=== PATIENT | male | born 1970 | race Two or more races ===

== ENCOUNTER 2022-07-16 15:22 | Inpatient (IN) | payer MEDICAID ==
[~2022-07-16] VITALS: Ht 165.1 cm; Wt 70.3 kg
--- NOTE | 2022-07-16 15:25 | NUR ---
[facility] W/ C/O CHEST DISCOMFORT, MID ABD PAIN GOING TO THROAT, ALSO C/O HEADACHE, GOT 3HRS 15MIN DIALYSIS BEFORE STOPPED, [id number]. TO ER BED 10.
--- NOTE | 2022-07-16 15:50 | NUR ---
TECH AT BEDSIDE FOR EKG
[2022-07-16] MEDS ORDERED: ONDANSETRON HCL/PF 4 MG/2 ML VIAL IV ONE (16:00)
[2022-07-16] MEDS ORDERED: MORPHINE SULFATE INJ 2 MG/ML DISP.SYRIN IV ONE (16:00)
[2022-07-16] MEDS ORDERED: FAMOTIDINE/PF INJ 20 MG/2 ML VIAL IV ONE ×2 (16:00→16:04)
[2022-07-16] MEDS ORDERED: MORPHINE SULFATE INJ 4 MG/ML DISP.SYRIN ONE (16:03)
[2022-07-16] MEDS ORDERED: ONDANSETRON HCL/PF 4 MG/2 ML VIAL ONE (16:03)
[2022-07-16 16:04] LABS: BASOPHILS % (AUTO) 0.4 % (0.0-2.0); EOSINOPHILS % (AUTO) 3.9 % (0.0-6.0); HEMATOCRIT 22 % (39-51); HEMOGLOBIN 7.2 g/dL (13.5-17.5); LYMPHOCYTES # (AUTO) 0.9 K/uL (0.8-4.8); LYMPHOCYTES % (AUTO) 12.8 % (20.0-44.0); MEAN CORPUSCULAR HGB CONC 34 g/dl (31.0-36.0); MEAN CORPUSCULAR VOLUME 87 fL (80-96); MONOCYTES # (AUTO) 0.9 K/uL (0.1-1.30); MONOCYTES % (AUTO) 12.6 % (2.0-12.0); NEUTROPHILS # (AUTO) 4.8 K/uL (1.8-8.9); NEUTROPHILS % (AUTO) 70.3 % (43.0-81.0); PLATELET COUNT (AUTO) 73 K/uL (150-450); RED BLOOD CELL COUNT(AUTO) 2.47 MIL/uL (4.5-6.0); WHITE BLOOD COUNT (AUTO) 6.9 K/uL (4.3-11.0)
[2022-07-16 16:14] LABS: CALCIUM, SERUM 8.2 mg/dL (8.5-10.1); CARBON DIOXIDE 33 mmol/L (21-32); CHLORIDE 98 mmol/L (98-107); GLUCOSE 333 mg/dL (74-106); SODIUM SERUM 133 mmol/L (136-145); UREA NITROGEN, BLOOD 24 mg/dL (7-18)
[2022-07-16 16:20] LABS: ALANINE AMINOTRANSFERASE 76 U/L (12-78); ALBUMIN 2.7 g/dL (3.4-5.0); ALKALINE PHOSPHATASE 229 U/L (46-116); BILIRUBIN,DIRECT 0.1 mg/dL (0.0-0.2); BILIRUBIN,TOTAL 0.3 mg/dL (0.2-1.0); LIPASE 250 U/L (73-393)
--- NOTE | 2022-07-16 16:33 | NUR ---
TROPONIN-123, DR REYNOLDS MADE AWARE
[2022-07-16 16:40] LABS: ASPARTATE AMINOTRANSFERASE 35 U/L (15-37)
--- NOTE | 2022-07-16 16:40 | NUR ---
MOVE SHEET SUBMITTED.
--- NOTE | 2022-07-16 16:46 | NUR ---
COVID SWAB COLLECTED AND SENT TO LAB
--- NOTE | 2022-07-16 16:48 | NUR ---
[facility] CALLED PATTERNMAKER HELPER PAGED.
[2022-07-16] MEDS ORDERED: NIFE20CA PO (16:58)
[2022-07-16] MEDS ORDERED: ATOR80TA PO (16:58)
[2022-07-16] MEDS ORDERED: TAMS-12 PO (16:58)
[2022-07-16] MEDS ORDERED: ASPI-1169 PO (16:58)
[2022-07-16] MEDS ORDERED: GABA-532 PO (16:58)
[2022-07-16] MEDS ORDERED: ONDANSETRON HCL/PF 4 MG/2 ML VIAL IVP PRN (17:30)
[2022-07-16] MEDS ORDERED: ENOXAPARIN SODIUM 40 MG/0.4 ML DISP.SYRIN SQ SCH (17:30)
[2022-07-16] MEDS ORDERED: DEXTROSE 50%-WATER 50 ML DISP.SYRIN IV PRN (17:30)
[2022-07-16] MEDS ORDERED: Z GUARD REMEDY 4 OZ OINT TP PRN (17:30)
--- NOTE | 2022-07-16 17:32 | NUR ---
RT AT BEDSIDE FOR BLOOD DRAW FOR VBG
[2022-07-16 17:40] LABS: VBG COHb 0.3 %; VBG MetHb 0.3 %; VBG O2Hb 68.1 %; VENT MODE, VBG NASAL CANNULA
--- NOTE | 2022-07-16 18:37 | NUR ---
ROOM [id number]
--- NOTE | 2022-07-16 18:44 | NUR ---
PT REPORT GIVEN TO PRICE MAGAÑA
--- NOTE | 2022-07-16 19:45 | NUR ---
MECHANICAL APPRENTICECAD DRAFTER NOTES RECEIVED PATIENT FROM ER WITH IRINA AT 1945. PATIENT IS ALERT AND ORIENTED TIMES 4. LIBERIAN AND LIBERIAN SPEAKER. NO PAIN NOTED. NO SOB NOTED. NO DISTRESS NOTED. ON 02 INHALATION VIA NASAL CANNULA . O2 SAT NOTES 96%. IV ACCESS ON THE LAC g # 20 INTACT AND SL. RIGHT CHEST WALL PERMA CATH INTACT. NO BLEEDING NOTED. NOTED WOUND ON LEFT 2ND AND 3RD TOE AND SKIN DRYNESS ON THE LEFT KNEE. ON TELE MONITOR READING SR. ABLE TO MAKE NEEDS KNOWN. ABLE TO AMBULATE WITH WALKER. ANURIC. TROPONIN IS 125. ORDER OF LOVENOX CHANGED TO HEPARING PER PROPERTY CLAIM REP GUSTAVO. ALL SAFETY MEASURES IN PLACE. BED LOCKED IN THE LOWEST POSITION. CALL LIGHT AND TABLE IN EASY REACH. SIDE RAILS UP TIMES 2. EDUCATE THE PATIENT TO PRESS RED BUTTON FOR ANY ASSISTANCE. PATIENT VERBALIZED UNDERSTANDING. WILL CONTINUE TO MONITOR CLOSELY.
--- NOTE | 2022-07-16 19:52 | NUR ---
PATIENT TRANSFFERED TO 3W PER ACLS
[2022-07-16] MEDS: GABAPENTIN 100 MG CAPSULE PO SCH (20:53)
[2022-07-16] MEDS: BLOOD SUGAR DIAGNOSTIC 1 EACH STRIP IN SCH ×2 (20:53→21:22)
[2022-07-16] MEDS: ATORVASTATIN 10 MG TABLET PO SCH (21:13)
[2022-07-16] MEDS: HEPARIN SODIUM, PORCINE 5000 UNITS/1 ML VIAL SQ SCH (21:14)
[2022-07-16] MEDS: INSULIN REGULAR, HUMAN 100 UNIT/ML 3 ML VIAL SQ PRN (21:24)
[2022-07-16 22:05] VITALS: BP 149/76
[2022-07-17] VITALS: BP 145/65
--- NOTE | 2022-07-17 00:05 | NUR ---
RN NOTES DORIE FROM LAB CALLED AND REPORTED TROPONIN LEVEL 131. REPORTED TO BULB WEEDER ARINA CHEN. NO NEW ORDER WAS GIVEN.
--- NOTE | 2022-07-17 00:05 | NUR ---
RN DANA OSHEA FROM LAB CALLED AND GAVE REPORT OF TROPONIN 131. REPORTED THE RESULT TO JOSE CHEN , NO NEW ORDER WAS GIVEN.
[2022-07-17] MEDS: ACETAMINOPHEN 325 MG TABLET PO PRN ×4 (00:17→21:27)
--- NOTE | 2022-07-17 00:20 | NUR ---
RN NOTES PATIENT COMPLAINED OF HEADACHE. TYLENOL 650 MG GIVEN AT 0017. WILL ASSESS IN 1 HOUR.
[2022-07-17 04:00] VITALS: BP 161/86
[2022-07-17] MEDS: BLOOD SUGAR DIAGNOSTIC 1 EACH STRIP IN SCH ×4 (05:50→21:33)
[2022-07-17] MEDS: INSULIN REGULAR, HUMAN 100 UNIT/ML 3 ML VIAL SQ PRN ×4 (05:52→21:32)
[2022-07-17 05:56] LABS: BASOPHILS % (AUTO) 0.6 % (0.0-2.0); EOSINOPHILS % (AUTO) 6.2 % (0.0-6.0); HEMATOCRIT 21 % (39-51); HEMOGLOBIN 7.2 g/dL (13.5-17.5); LYMPHOCYTES # (AUTO) 0.9 K/uL (0.8-4.8); LYMPHOCYTES % (AUTO) 15.4 % (20.0-44.0); MEAN CORPUSCULAR HGB CONC 34 g/dl (31.0-36.0); MEAN CORPUSCULAR VOLUME 88 fL (80-96); MONOCYTES # (AUTO) 0.8 K/uL (0.1-1.30); MONOCYTES % (AUTO) 13.3 % (2.0-12.0); NEUTROPHILS % (AUTO) 64.5 % (43.0-81.0); PLATELET COUNT (AUTO) 71 K/uL (150-450); RED BLOOD CELL COUNT(AUTO) 2.44 MIL/uL (4.5-6.0); WHITE BLOOD COUNT (AUTO) 6.2 K/uL (4.3-11.0)
[2022-07-17 06:06] LABS: CALCIUM, SERUM 8.5 mg/dL (8.5-10.1); MAGNESIUM 2.2 mg/dL (1.8-2.4); PHOSPHORUS 5.3 mg/dL (2.5-4.9); POTASSIUM 4.3 mmol/L (3.5-5.1)
--- NOTE | 2022-07-17 06:39 | NUR ---
CASCADE OPERATOR CLOSING NOTES PATIENT IS ALERT AND ORIENTED TIMES 4. SWEDISH AND [place] SPEAKER. HEADACHE NOTED. PRN TYLENOL GIVEN FOR PAIN. NO SOB NOTED. NO DISTRESS NOTED. ON 02 INHALATION VIA NASAL CANNULA . O2 SAT NOTES 97%. IV ACCESS ON THE LAC g # 20 INTACT AND SL. RIGHT CHEST WALL PERMA CATH INTACT. NO BLEEDING NOTED. NOTED WOUND ON LEFT 2ND AND 3RD TOE AND SKIN DRYNESS ON THE LEFT KNEE. ON TELE MONITOR READING SR WITH BBB. ABLE TO MAKE NEEDS KNOWN. ABLE TO AMBULATE WITH WALKER. ANURIC. ALL DUE MEDS GIVEN ORDERED. ALL SAFETY MEASURES IN PLACE. BED LOCKED IN THE LOWEST POSITION. CALL LIGHT AND TABLE IN EASY REACH. SIDE RAILS UP TIMES 2. EDUCATE THE PATIENT TO PRESS RED BUTTON FOR ANY ASSISTANCE. PATIENT VERBALIZED UNDERSTANDING. WILL ENDORSE FOR JAVIER.
[2022-07-17 07:00] VITALS: BP 171/87
--- NOTE | 2022-07-17 07:26 | NUR ---
MARINE FUEL DOCK ATTENDANT OPENING NOTES RECIEVED PATIENT ON BED AWAKE AND VERBALLY RESPONSIVE , A/0 X4 , ON 2 L OF OXYGEN AND TOLERATED WELL , NO SOB OR DISTRESS NOTED , NO C/O OF PAIN AND DISCOMFORT , IV ACCESS ON LAC #20 G SL , ON HEMODIALYSIS WITH RUC PERMA CATH ACCESS INTACT , ON TELE MONITOR WITH READING OF OF SR C BBB , SAFETY MEASURES PROVIDED , SIDE RAILS UP X2 , CALL LIGHT WITHIN REACH AND WILL CONTINUE TO MONITOR FOR ANY CHANGES
[2022-07-17] MEDS: ASPIRIN 81 MG TAB.CHEW PO SCH (08:11)
[2022-07-17] MEDS: TAMSULOSIN 0.4 MG CAP.SR.24H PO SCH (08:12)
[2022-07-17] MEDS: GABAPENTIN 100 MG CAPSULE PO SCH ×3 (08:12→16:12)
[2022-07-17] MEDS: HEPARIN SODIUM, PORCINE 5000 UNITS/1 ML VIAL SQ SCH ×2 (08:13→20:20)
[2022-07-17 08:50] LABS: BAND % (MANUAL) 1 % (0.0-5.0); EOSINOPHILS % (MANUAL) 5 % (0-4); LYMPHOCYTES % (MANUAL) 16 % (16-48); MONOCYTES % (MANUAL) 10 % (0-11.0); NEUTROPHILS % (MANUAL) 68 (42-76)
[2022-07-17] MEDS ORDERED: HEPARIN INFUSION/D5W 500 ML IV PRN (13:30)
--- NOTE | 2022-07-17 15:10 | NUR ---
RN NOTES PATIENT C/O OF HEADACHE AND TYLENOL GIVEN ORDERED
[2022-07-17 16:00] VITALS: BP 200/90
[2022-07-17] MEDS ORDERED: hydrALAZINE HCL 50 MG TABLET PO ONE (16:00)
--- NOTE | 2022-07-17 16:10 | NUR ---
RN NOTES PATIENT BP WAS 200/90 AND DNP SHRUIT AWARE AND WITH ORDER TO GIVE HYDRALAZINE 50 MG PO X 1 , GIVEN ORDERED
--- NOTE | 2022-07-17 17:00 | NUR ---
RN NOTES RECHECKED BP - WITH 158/80 , MD AWARE , NO CHANGES NOTED AT THIS TIME
--- NOTE | 2022-07-17 18:39 | NUR ---
[employer] SALES REPRESENTATIVE CLOSING NOTES RECEIVED PATIENT ON BED AWAKE AND VERBALLY RESPONSIVE , A/0 X4 , SPEAKS BAHAMIAN AND SPANISH , ON 2 L OF OXYGEN AND TOLERATED WELL , NO SOB OR DISTRESS NOTED , C/O OF PAIN AND DISCOMFORT - HEADACHE AND TYLENOL GIVEN ORDERED , IV ACCESS ON LAC #20 G SL , ON HEMODIALYSIS WITH RUC PERMA CATH ACCESS INTACT , ON TELE MONITOR WITH READING OF OF SR C BBB HR OF 68 , SAFETY MEASURES PROVIDED , SIDE RAILS UP X2 , CALL LIGHT WITHIN REACH AND ENDORSED TO NEXT SHIFT
--- NOTE | 2022-07-17 19:30 | NUR ---
REHABILITATION ASSISTANT OPENING NOTES PATIENT IS ALERT AND ORIENTED TIMES 4. IVORIAN AND SLOVENIAN SPEAKER. NO SOB NOTED. NO DISTRESS NOTED. ON 02 INHALATION VIA NASAL CANNULA . O2 SAT NOTES 96%. IV ACCESS ON THE LAC g # 20 INTACT AND SL. RIGHT CHEST WALL PERMA CATH INTACT. NO BLEEDING NOTED. NOTED WOUND ON LEFT 2ND AND 3RD TOE AND SKIN DRYNESS ON THE LEFT KNEE. ON TELE MONITOR READING SR WITH BBB. ABLE TO MAKE NEEDS KNOWN. ABLE TO AMBULATE WITH WALKER. ANURIC. ALL SAFETY MEASURES IN PLACE. BED LOCKED IN THE LOWEST POSITION. CALL LIGHT AND TABLE IN EASY REACH. SIDE RAILS UP TIMES 2. EDUCATE THE PATIENT TO PRESS RED BUTTON FOR ANY ASSISTANCE. PATIENT VERBALIZED UNDERSTANDING. WILL CONTINUE TO MONITOR.
[2022-07-17] MEDS ORDERED: NITROGLYCERIN PACKET 1 GM PACKET ONE (20:17)
[2022-07-17] MEDS: NITROGLYCERIN 30 GM TUBE TP SCH (20:22)
[2022-07-17] MEDS: ATORVASTATIN 10 MG TABLET PO SCH (21:17)
[2022-07-18 00:16] VITALS: BP 154/70
[2022-07-18] MEDS: ACETAMINOPHEN 325 MG TABLET PO PRN ×2 (04:15→17:05)
[2022-07-18] MEDS: hydrALAZINE HCL 50 MG TABLET PO SCH ×3 (04:15→22:32)
[2022-07-18 04:43] VITALS: BP 180/80
[2022-07-18] MEDS: BLOOD SUGAR DIAGNOSTIC 1 EACH STRIP IN SCH ×4 (06:07→22:42)
[2022-07-18] MEDS: INSULIN REGULAR, HUMAN 100 UNIT/ML 3 ML VIAL SQ PRN ×4 (06:13→22:46)
--- NOTE | 2022-07-18 06:31 | NUR ---
SOURCING CONSULTANT CLOSING NOTES PATIENT IS ALERT AND ORIENTED TIMES 4. BRITISH [place]ER AND [place] SPEAKER. NO DISTRESS NOTED. ON 02 INHALATION VIA NASAL CANNULA . O2 SAT NOTES 98%. IV ACCESS ON THE LAC g # 20 INTACT AND SL. RIGHT CHEST WALL PERMA CATH INTACT. NO BLEEDING NOTED. NOTED WOUND ON LEFT 2ND AND 3RD TOE AND SKIN DRYNESS ON THE LEFT KNEE. ON TELE MONITOR READING SR WITH BBB. ABLE TO MAKE NEEDS KNOWN. ABLE TO AMBULATE WITH WALKER. ANURIC. ALL DUE MEDS GIVEN ORDERED. ALL SAFETY MEASURES IN PLACE. BED LOCKED IN THE LOWEST POSITION. CALL LIGHT AND TABLE IN EASY REACH. SIDE RAILS UP TIMES 2. EDUCATE THE PATIENT TO PRESS RED BUTTON FOR ANY ASSISTANCE. PATIENT VERBALIZED UNDERSTANDING. WILL ENDORSE FOR JAVIER.
[2022-07-18 06:34] LABS: BASOPHILS % (AUTO) 0.6 % (0.0-2.0); EOSINOPHILS % (AUTO) 3.9 % (0.0-6.0); HEMATOCRIT 21 % (39-51); LYMPHOCYTES # (AUTO) 0.8 K/uL (0.8-4.8); LYMPHOCYTES % (AUTO) 10.9 % (20.0-44.0); MEAN CORPUSCULAR HGB CONC 33 g/dl (31.0-36.0); MEAN CORPUSCULAR VOLUME 89 fL (80-96); MONOCYTES # (AUTO) 0.7 K/uL (0.1-1.30); MONOCYTES % (AUTO) 9.6 % (2.0-12.0); NEUTROPHILS # (AUTO) 5.8 K/uL (1.8-8.9); PLATELET COUNT (AUTO) 94 K/uL (150-450); RED BLOOD CELL COUNT(AUTO) 2.41 MIL/uL (4.5-6.0); WHITE BLOOD COUNT (AUTO) 7.7 K/uL (4.3-11.0)
[2022-07-18 06:44] LABS: CALCIUM, SERUM 8.6 mg/dL (8.5-10.1); CREATININE 6.5 mg/dL (0.6-1.3); PHOSPHORUS 5.4 mg/dL (2.5-4.9); POTASSIUM 4.9 mmol/L (3.5-5.1)
--- NOTE | 2022-07-18 07:05 | NUR ---
RN NOTES LELA FROM LAB CALLED AT 0700 AM AND REPORTED LAB RESULT OF HEMOGLOBIN 7 AND TROPONIN 138. INFORMED ARINA CHEN. AWAITING FOR NEW ORDERS IF GIVEN.
--- NOTE | 2022-07-18 07:25 | NUR ---
FREIGHT CALLER OPENING NOTES RECEIVED PATIENT IN BED, AWAKE, ALERT, ORIENTED X 4. NO RESPIRATORY DISTRESS NOTED AT THIS TIME, BREATHING EVEN AND UNLABORED. ON OXYGEN @ 2L/MIN VIA N/C WITH OXYGEN SATURATION OF 99%. ON SR WITH BBB PER TELE MONITOR WITH HR OF 82. NO C/O CHEST PAIN OR DISCOMFORT AT THIS TIME. IV ACCESS ON LEFT ANTECUBITAL AREA INTACT, PATENT, FLUSHES WELL, NO S/S INFILTRATION NOTED. ALSO HAS PERMACATH INTACT ON RIGHT CHEST WALL, DRESSING CLEAN AND DRY. ALL SAFETY MEASURES IN PLACE. BED LOCKED AND IN LOWEST POSITION WITH BED ALARM ON. CALL LIGHT WITHIN REACH AND INSTRUCTED TO USE IT NEEDED. WILL CONTINUE TO MONITOR PATIENT THROUGHOUT SHIFT.
[2022-07-18 08:00] VITALS: BP 144/70
--- NOTE | 2022-07-18 08:35 | NUR ---
CONTACTED SHRUTI VEGAS AND INFORMED OF TROPONIN OF 138 WITH HGB OF 7.0 AND HCT OF 21. PATIENT ALSO HAS AN ORDER FOR HEPARIN. GAVE AN ORDER TO CONTINUE DOSE OF HEPARIN ORDERED.
[2022-07-18 08:41] LABS: EOSINOPHILS % (MANUAL) 5 % (0-4); LYMPHOCYTES % (MANUAL) 16 % (16-48); MONOCYTES % (MANUAL) 5 % (0-11.0); NEUTROPHILS % (MANUAL) 74 (42-76)
[2022-07-18] MEDS: ASPIRIN 81 MG TAB.CHEW PO SCH (08:41)
[2022-07-18] MEDS: GABAPENTIN 100 MG CAPSULE PO SCH ×3 (08:41→17:04)
[2022-07-18] MEDS: TAMSULOSIN 0.4 MG CAP.SR.24H PO SCH (08:41)
[2022-07-18] MEDS: NIFEdipine XL (30MG) 30 MG TAB PO SCH (08:41)
[2022-07-18] MEDS: NITROGLYCERIN 30 GM TUBE TP SCH ×2 (08:53→22:32)
[2022-07-18] MEDS: HEPARIN SODIUM, PORCINE 5000 UNITS/1 ML VIAL SQ SCH ×2 (09:52→22:00)
--- NOTE | 2022-07-18 09:58 | NUR ---
WOUND CARE CONSULT: PT PRESENTS WITH DRY WOUNDS/DISCOLORATION TO LEFT 2ND AND 3RD TOES, PRESENT ON ADMISSION. PT EXAMINED BY DR BREWER. DEFER TO DPM FOR WOUND TREATMENT PLAN. DISCUSSED SKIN PROTECTION WITH NURSING STAFF. MD IN AGREEMENT WITH PLAN OF CARE.
[2022-07-18] MEDS ORDERED: MORPHINE SULFATE INJ 2 MG/ML DISP.SYRIN IV ONE (10:00)
--- NOTE | 2022-07-18 10:00 | NUR ---
CLARK BAHENA WITH AN ORDER FOR MORPHINE 2 MG IVP ONCE DUE TO HEADACHE. ORDER NOTED AND CARRIED OUT.
[2022-07-18] MEDS ORDERED: NITROGLYCERIN 30 GM TUBE TP SCH (11:00)
[2022-07-18] MEDS ORDERED: hydrALAZINE HCL 50 MG TABLET PO SCH (11:00)
[2022-07-18 16:00] VITALS: BP 143/71
--- NOTE | 2022-07-18 18:37 | NUR ---
WOODWORKING MACHINIST CLOSING NOTES PATIENT IN BED, AWAKE, ALERT, ORIENTED X 4. NO RESPIRATORY DISTRESS NOTED THROUGHOUT SHIFT. ON SR WITH PER TELE MONITOR WITH HR OF 84. NO C/O CHEST PAIN OR DISCOMFORT THROUGHOUT SHIFT. IV ACCESS ON LEFT ANTECUBITAL AREA INTACT, PATENT, FLUSHES WELL, NO S/S INFILTRATION NOTED. ALSO HAS PERMACATH INTACT ON RIGHT CHEST WALL, DRESSING CLEAN AND DRY. ALL SAFETY MEASURES IMPLEMENTED. BED LOCKED AND IN LOWEST POSITION WITH BED ALARM ON. CALL LIGHT WITHIN REACH AND INSTRUCTED TO USE IT NEEDED. WILL ENDORSE TO ONCOMING NURSE FOR CONTINUITY OF CARE.
--- NOTE | 2022-07-18 19:30 | NUR ---
DRAWBRIDGE TENDER OPENING NOTE RECEIVED PATIENT FROM AM NURSE; PATIENT IS ALERT AND ORIENTED X 4, ON NASAL CANNULA 2LPM, BREATHING EVENLY AND NO RESPIRATORY DISTRESS NOTED; ABLE TO MAKE NEEDS KNOWN; HOOKED TO COURT OF APPEALS JUDGE; WITH PERMACATH ON RIGHT UPPER CHESTWALL; WITH IV ACCESS ON LAC G20 SALINE LOCK; SAFETY PRECAUTIONS IMPLEMENTED, BED IN LOW POSITION, LOCKED, SIDE RAILS UP X 3, CALL LIGHT WITHIN REACH; WILL CONTINUE TO MONITOR THROUGHOUT SHIFT
[2022-07-18 20:00] VITALS: BP 137/68
[2022-07-18] MEDS: ATORVASTATIN 10 MG TABLET PO SCH (22:32)
[2022-07-19] VITALS (10 sets, daily range): BP systolic 102–153; BP diastolic 62–77
[2022-07-19] MEDS: ACETAMINOPHEN 325 MG TABLET PO PRN ×3 (00:48→20:42)
--- NOTE | 2022-07-19 01:00 | NUR ---
CLOCK AND WATCH HANDS DIPPER NOTE PATIENT UNDERWENT HEMODIALYSIS, 2L OUT; PATIENT COMPLAINED OF PAIN 2/10, GAVE TYLENOL PRN ORDERED; PATIENT TOLERATED WELL
[2022-07-19] MEDS: hydrALAZINE HCL 50 MG TABLET PO SCH ×3 (04:58→21:13)
[2022-07-19] MEDS: BLOOD SUGAR DIAGNOSTIC 1 EACH STRIP IN SCH ×4 (06:30→21:45)
[2022-07-19] MEDS: INSULIN REGULAR, HUMAN 100 UNIT/ML 3 ML VIAL SQ PRN ×4 (06:34→21:44)
--- NOTE | 2022-07-19 06:50 | NUR ---
UNDERGROUND BOLTING MACHINE OPERATOR CLOSING NOTE PATIENT IS ALERT AND ORIENTED X 4, ON NASAL CANNULA 2LPM, BREATHING EVENLY AND NO RESPIRATORY DISTRESS NOTED; ABLE TO MAKE NEEDS KNOWN; HOOKED TO MANAGER STERILE PROCESSING, NO CARDIAC DISTRESS NOTED; WITH PERMACATH ON RIGHT UPPER CHESTWALL; WITH IV ACCESS ON LAC G20 SALINE LOCK; ADMINISTERED MEDICATIONS PRESCRIBED; PATIENT'S NEEDS ATTENDED; NO COMPLAINTS OF PAIN AND DISCOMFORT AT THIS TIME; SAFETY PRECAUTIONS IMPLEMENTED, BED IN LOW POSITION, LOCKED, SIDE RAILS UP X 3, CALL LIGHT WITHIN REACH; WILL ENDORSE TO AM NURSE FOR JAVIER.
--- NOTE | 2022-07-19 08:08 | NUR ---
RN OPENING NOTE PATIENT AWAKE IN BED RESTING, A/O X 4. NO S/S OF PAIN NOTED AT THIS TIME. ON 2L OXYGEN VIA NC, NO SHORTNESS OF BREATH, NO DISTRESS NOTED. IV ACCESS LAC #20G, INTACT, PATENT AND FLUSHING WELL. PATIENT ON EXTERNAL ON CAR SUPERVISOR WITH CURRENT READING OF SR AND HR OF 81, NO CARDIAC DISTRESS NOTED. FALL AND SAFETY MEASURES IN PLACE, BED ALARM ON, BED IN LOW AND LOCK POSITION, CALL LIGHT AND TABLE WITHIN EASY REACH, SIDE RAILS UP X2. WILL CONTINUE TO MONITOR.
[2022-07-19] MEDS: HEPARIN SODIUM, PORCINE 5000 UNITS/1 ML VIAL SQ SCH ×2 (09:00→21:00)
[2022-07-19] MEDS: ASPIRIN 81 MG TAB.CHEW PO SCH (09:33)
[2022-07-19] MEDS: GABAPENTIN 100 MG CAPSULE PO SCH ×3 (09:33→17:22)
[2022-07-19] MEDS: NIFEdipine XL (30MG) 30 MG TAB PO SCH (09:33)
[2022-07-19] MEDS: NITROGLYCERIN 30 GM TUBE TP SCH ×2 (09:34→21:14)
[2022-07-19] MEDS: TAMSULOSIN 0.4 MG CAP.SR.24H PO SCH (09:34)
[2022-07-19 09:54] LABS: BASOPHILS % (AUTO) 0.5 % (0.0-2.0); EOSINOPHILS % (AUTO) 4.1 % (0.0-6.0); LYMPHOCYTES # (AUTO) 0.6 K/uL (0.8-4.8); LYMPHOCYTES % (AUTO) 10.8 % (20.0-44.0); MEAN CORPUSCULAR HGB CONC 33 g/dl (31.0-36.0); MEAN CORPUSCULAR VOLUME 88 fL (80-96); MONOCYTES # (AUTO) 0.7 K/uL (0.1-1.30); MONOCYTES % (AUTO) 11.9 % (2.0-12.0); NEUTROPHILS # (AUTO) 4.3 K/uL (1.8-8.9); NEUTROPHILS % (AUTO) 72.7 % (43.0-81.0); PLATELET COUNT (AUTO) 106 K/uL (150-450); RED BLOOD CELL COUNT(AUTO) 2.26 MIL/uL (4.5-6.0)
[2022-07-19 10:03] LABS: HEMATOCRIT 20 % (39-51); HEMOGLOBIN 6.6 g/dL (13.5-17.5)
[2022-07-19 11:11] LABS: EOSINOPHILS % (MANUAL) 5 % (0-4); LYMPHOCYTES % (MANUAL) 15 % (16-48); MONOCYTES % (MANUAL) 8 % (0-11.0); NEUTROPHILS % (MANUAL) 72 (42-76)
--- NOTE | 2022-07-19 14:00 | NUR ---
RN NOTE PATIENT INFORMED US THAT HIS NAME WAS ERIN MARCANO INSTED OF KRYS BHAKTA. ADMITTING OFFICE WAS NOTIFIED AND NAME WAS UPDATE AND NEW ID BAND WAS OBTAINED. CHARGE NURSE AWARE.
--- NOTE | 2022-07-19 16:24 | NUR ---
RN NOTE PATIENT HEMOGLOBIN WAS 6.6, DOCTOR CARLITA ORDER AT BEDSIDE 1 UNIT OF BLOOD WITH HEMODIALYSIS, ORDER WAS PLACED AND PATIENT HAD HEMODIALYSIS AND BLOOD TRANSFUSION TODAY. NO SIDE EFFECTS OR REACTIONS, PATIENT TOLERATED WELL, V/S SIGN, TAKEN STABLE AND RECORDED. TRANSFUSION WAS DONE AT 1617, I WAS NOT ABLE TO END TRANSFUSION IN THE COMPUTER, IT DIDN'T ALLOWED ME TO CLICK ON THE END TRANSFUSION, PATIENT IS RESTING IN HIS ROOM COMFORTABLE, WILL CONTINUE TO MONITOR. CHARGE NURSE AWARE.
--- NOTE | 2022-07-19 18:47 | NUR ---
RN CLOSING NOTE PATIENT AWAKE IN BED RESTING, A/O X 4. NO S/S OF PAIN NOTED AT THIS TIME. ON ROOM AIR, NO SHORTNESS OF BREATH, NO DISTRESS NOTED. IV ACCESS LAC #20G, INTACT, PATENT AND FLUSHING WELL, HD ACCESS RIGHT UPPER CW PERMCATH. PATIENT ON EXTERNAL ADVANCED SOLUTIONS ARCHITECT WITH CURRENT READING OF SR AND HR OF 96, NO CARDIAC DISTRESS NOTED. SCHEDULE MEDICATIONS ADMINISTERED. WOUND CARE IMPLEMENTED. FALL AND SAFETY MEASURES IN PLACE, BED ALARM ON, BED IN LOW AND LOCK POSITION, CALL LIGHT AND TABLE WITHIN EASY REACH, SIDE RAILS UP X2. ALL NEEDS ATTENDED AND ANTICIPATED. WILL ENDORSE TO LAPELER NURSE.
--- NOTE | 2022-07-19 19:40 | NUR ---
RN OPENING NOTE RECEIVED PATIENT AWAKE, RESTING IN BED. PT A/O X 4. NO S/S OF PAIN NOTED AT THIS TIME. ON 2L OXYGEN VIA NC, NO SHORTNESS OF BREATH, NO RESPIRATORY DISTRESS NOTED. IV ACCESS TO LEFT AC #20G, INTACT, PATENT, AND FLUSHING WELL. PATIENT ON EXTERNAL CREAM MAKER WITH CURRENT READING OF SR AND HR OF 90, NO CARDIAC DISTRESS NOTED. FALL AND SAFETY MEASURES IN PLACE, BED ALARM ON, BED IN LOW AND LOCKED POSITION, CALL LIGHT AND TABLE WITHIN REACH, SIDE RAILS UP X2. WILL CONTINUE TO MONITOR PT.
[2022-07-19] MEDS: ATORVASTATIN 10 MG TABLET PO SCH (21:12)
[2022-07-20] VITALS: BP 136/65
[2022-07-20] MEDS ORDERED: MAGNESIUM HYDROXIDE 30 ML UDC PO PRN (01:00)
[2022-07-20 04:00] VITALS: BP 144/71
--- NOTE | 2022-07-20 04:15 | NUR ---
RN MEDICATION NOTE PT C/O CONSTIPATION. HE REPORTS THAT HE HAS NOT HAD A BM FOR 3 DAYS. INTERVIEWING CLERK AICHA GATICA CALLED, AND INFORMED. NEW ORDER RECEIVED FOR MOM 30 ML QD PRN. ORDER CARRIED OUT, AND IMPLEMENTED. PT ADMINISTERED MOM.
[2022-07-20] MEDS: hydrALAZINE HCL 50 MG TABLET PO SCH ×3 (04:24→20:56)
[2022-07-20 05:57] LABS: BASOPHILS % (AUTO) 0.7 % (0.0-2.0); EOSINOPHILS % (AUTO) 4.1 % (0.0-6.0); HEMATOCRIT 22 % (39-51); HEMOGLOBIN 7.2 g/dL (13.5-17.5); LYMPHOCYTES # (AUTO) 0.7 K/uL (0.8-4.8); LYMPHOCYTES % (AUTO) 11.8 % (20.0-44.0); MEAN CORPUSCULAR HGB CONC 33 g/dl (31.0-36.0); MEAN CORPUSCULAR VOLUME 90 fL (80-96); MONOCYTES # (AUTO) 0.7 K/uL (0.1-1.30); NEUTROPHILS # (AUTO) 4.3 K/uL (1.8-8.9); NEUTROPHILS % (AUTO) 71.4 % (43.0-81.0); PLATELET COUNT (AUTO) 113 K/uL (150-450); RED BLOOD CELL COUNT(AUTO) 2.42 MIL/uL (4.5-6.0)
[2022-07-20] MEDS: BLOOD SUGAR DIAGNOSTIC 1 EACH STRIP IN SCH ×4 (06:11→21:11)
[2022-07-20 06:13] LABS: CALCIUM, SERUM 8.9 mg/dL (8.5-10.1); CREATININE 4.5 mg/dL (0.6-1.3); PHOSPHORUS 3.8 mg/dL (2.5-4.9); POTASSIUM 4.5 mmol/L (3.5-5.1)
[2022-07-20] MEDS: INSULIN REGULAR, HUMAN 100 UNIT/ML 3 ML VIAL SQ PRN ×4 (06:13→21:13)
--- NOTE | 2022-07-20 06:50 | NUR ---
CURTAIN DRIER CLOSING NOTE PATIENT IS ALERT AND ORIENTED X 4, ON NASAL CANNULA 2LPM, BREATHING EVENLY AND NO RESPIRATORY DISTRESS NOTED; ABLE TO MAKE NEEDS KNOWN; ON TELE MONITOR, NO CARDIAC DISTRESS NOTED; WITH PERMA CATH ON RIGHT UPPER CHEST WALL; WITH IV ACCESS ON LAC G20 SALINE LOCK; ADMINISTERED MEDICATIONS PRESCRIBED; PATIENT'S NEEDS ATTENDED; NO COMPLAINTS OF PAIN AND DISCOMFORT AT THIS TIME; SAFETY PRECAUTIONS IMPLEMENTED, BED IN LOW POSITION, LOCKED, SIDE RAILS UP X 3, CALL LIGHT WITHIN REACH; WILL ENDORSE TO AM NURSE FOR JAVIER.
--- NOTE | 2022-07-20 07:29 | NUR ---
DIRECTOR NICU OPENING NOTE RECEIVED PT ASLEEP IN BED, EASILY AROUSED. PT IS A/OX4, ABLE TO MAKE NEEDS KNOWN. ON ROOM AIR, TOLERATING WELL. NO SOB NOTED. NOT IN ANY SIGN OF RESPIRATORY DISTRESS. PT IS ON CARDIAC TELE MONITOR WITH CURRENT READING OF SINUS RHYTHM WITH OCCASIONAL PVC'S, HR 90. NO C/O CARDIAC DISTRESS VOICED OUT AT THIS TIME. IV ACCESS ON LAC G#20, INTACT AND PATENT. RIGHT UPPER CHEST WALL PERMACATH INTACT. SAFETY MEASURES IN PLACE: BED IN LOWEST AND LOCKED POSITION, SIDE RAILS UPX2, AND CALL LIGHT WITHIN REACH. WILL CONTINUE TO MONITOR PT.
[2022-07-20 08:00] VITALS: BP 137/57
[2022-07-20] MEDS: GABAPENTIN 100 MG CAPSULE PO SCH ×3 (08:32→17:23)
[2022-07-20] MEDS: TAMSULOSIN 0.4 MG CAP.SR.24H PO SCH (08:32)
[2022-07-20] MEDS: NIFEdipine XL (30MG) 30 MG TAB PO SCH (08:33)
[2022-07-20] MEDS: HEPARIN SODIUM, PORCINE 5000 UNITS/1 ML VIAL SQ SCH ×2 (08:33→20:51)
[2022-07-20] MEDS: ASPIRIN 81 MG TAB.CHEW PO SCH (08:33)
[2022-07-20] MEDS: NITROGLYCERIN 30 GM TUBE TP SCH ×2 (08:34→20:58)
--- NOTE | 2022-07-20 08:41 | NUR ---
RN NOTE PT'S HEPARIN MEDICATION SCHEDULED AT 0900 NOT ADMINISTERED. PER MD TO HOLD AT THIS TIME DUE TO LOW IN HEMOGLOBIN LEVEL.
[2022-07-20] MEDS: DOCUSATE SODIUM 100 MG CAPSULE PO SCH ×2 (10:50→17:23)
--- NOTE | 2022-07-20 13:20 | NUR ---
RN NOTE PT C/O NAUSEA AND REQUESTED FOR MEDICATIONS. ZOFRAN 4MG IVP ADMINISTERED ORDERED Q6HR PRN FOR N/V. WILL MONITOR AND REASSESS PT.
[2022-07-20 17:19] VITALS: BP 112/65
[2022-07-20] MEDS: NEPRO VAN 237 ML CAN PO SCH (17:36)
[2022-07-20] MEDS ORDERED: BISACODYL SUPP (10 MG) 10 MG/SUPP.RECT SUPP.RECT RC PRN (18:00)
[2022-07-20] MEDS ORDERED: POLYETHYLENE GLYCOL 3350 17 GM POWD.PACK PO PRN (18:00)
--- NOTE | 2022-07-20 19:28 | NUR ---
DIE MOUNTER OPENING NOTES - RECEIVED PATIENT IN BED, EYES CLOSED, RESPONSIVE TO VERBAL STIMULI. A/O X4. BREATHING EVEN AND NON-LABORED ON ROOM AIR. NOT IN APPARENT DISTRESS. DENIES PAIN AT THIS TIME. ON TELE MONITOR READING SINUS RHYTHM AT 88 BPM. HAS LEFT ANTECUBITAL IV ACCESS #20G AND SALINE LOCKED. NO S/S OF INFILTRATION NOTED. HAS RIGHT CHEST WALL PERMA CATH. PER PATIENT, HE STILL PEES BUT HAVE NOT POOPED YET. SAFETY PRECAUTIONS IN PLACE: BED LOCKED AND IN LOW POSITION, SIDE RAILS UP X2, CALL LIGHT WITHIN REACH. WILL CONTINUE PLAN OF CARE.
--- NOTE | 2022-07-20 19:59 | NUR ---
SENSORY SCIENTIST CLOSING NOTE PT ASLEEP IN BED, EASILY AROUSED. PT IS A/OX4, ABLE TO MAKE NEEDS KNOWN. ON ROOM AIR, TOLERATING WELL. NO SOB NOTED. NOT IN ANY SIGN OF RESPIRATORY DISTRESS. PT IS ON CARDIAC TELE MONITOR WITH CURRENT READING OF SINUS RHYTHM WITH OCCASIONAL PVC'S, HR 87. NO C/O CARDIAC DISTRESS VOICED OUT AT THIS TIME. IV ACCESS ON LAC G#20, INTACT AND PATENT. RIGHT UPPER CHEST WALL PERMACATH INTACT. ALL NEEDS ATTENDED. KEPT CLEAN AND COMFORTABLE AT ALL TIMES.L SAFETY MEASURES IN PLACE: BED IN LOWEST AND LOCKED POSITION, SIDE RAILS UPX2, AND CALL LIGHT WITHIN REACH. ENDORSED TO DIRECTOR DISTRIBUTION NURSE FOR JAVIER.
[2022-07-20 20:00] VITALS: BP 144/75
--- NOTE | 2022-07-20 20:52 | NUR ---
HOLD HEPARIN DOSE PER MD ORDER. H/H 7.08/10
[2022-07-20] MEDS: ATORVASTATIN 10 MG TABLET PO SCH (21:00)
[2022-07-21] VITALS: BP 126/69
[2022-07-21] MEDS: ACETAMINOPHEN 325 MG TABLET PO PRN ×2 (02:35→20:02)
--- NOTE | 2022-07-21 02:35 | NUR ---
PATIENT C/O HEADACHE AND REQUESTED FOR TYLENOL. Addendum: 07/21/22 at 0324 by November ERNI THRASHER PATIENT IS STILL C/O HEADACHE 12/26, VS WNL. NOTIFIED AICHA AND ORDERED NORCO 10-325 X1 TAB PO Q6 PRN. NOTED AND CARRIED OUT.
[2022-07-21] MEDS: HYDROCODONE/APAP 10/325MG TABLET PO PRN ×2 (03:45→23:39)
[2022-07-21 04:00] VITALS: BP_SYST 133; BP_SYST 148; BP_DIAS 69; BP_DIAS 72
[2022-07-21] MEDS: hydrALAZINE HCL 50 MG TABLET PO SCH ×3 (04:58→21:16)
[2022-07-21 05:05] VITALS: BP 133/69
[2022-07-21 06:14] LABS: BASOPHILS # (AUTO) 0.1 K/uL (0.0-0.2); BASOPHILS % (AUTO) 1.4 % (0.0-2.0); EOSINOPHILS % (AUTO) 3.4 % (0.0-6.0); HEMATOCRIT 23 % (39-51); HEMOGLOBIN 7.4 g/dL (13.5-17.5); LYMPHOCYTES # (AUTO) 1.1 K/uL (0.8-4.8); LYMPHOCYTES % (AUTO) 17.4 % (20.0-44.0); MEAN CORPUSCULAR HGB CONC 33 g/dl (31.0-36.0); MEAN CORPUSCULAR VOLUME 90 fL (80-96); MONOCYTES # (AUTO) 0.6 K/uL (0.1-1.30); MONOCYTES % (AUTO) 9.8 % (2.0-12.0); NEUTROPHILS # (AUTO) 4.4 K/uL (1.8-8.9); PLATELET COUNT (AUTO) 133 K/uL (150-450); RED BLOOD CELL COUNT(AUTO) 2.52 MIL/uL (4.5-6.0); WHITE BLOOD COUNT (AUTO) 6.5 K/uL (4.3-11.0)
--- NOTE | 2022-07-21 06:33 | NUR ---
WINDOWS APPLICATION PACKAGER CLOSING NOTES - PATIENT IN BED AWAKE, ABLE TO VERBALIZE NEEDS. NO SOB OR NOTED. ON SUPPLEMENTAL O2 AT 2LPM VIA NASAL CANULA. AFEBRILE. STILL C/O HEADACHE, PRN MEDS GIVEN AND NOT DUE YET. NON-PHARMACOLOGICAL INTERVENTIONS DONE. ON TELE MONITOR READING SINUS RHYTHM WITH BBB AT 82 BPM. HAS RIGHT HAND IV ACCESS #20G INTACT, PATENT AND FLUSHING. RIGHT CHEST WALL PERMACATH DRESSING C/D/I. ALL DUE MEDS GIVEN AND NEEDS ATTENDED. SAFETY PRECAUTIONS MAINTAINED. WILL ENDORSE TO NEXT SHIFT FOR JAVIER.
[2022-07-21 06:41] LABS: CALCIUM, SERUM 8.8 mg/dL (8.5-10.1); CREATININE 5.9 mg/dL (0.6-1.3); MAGNESIUM 2.1 mg/dL (1.8-2.4); PHOSPHORUS 4.5 mg/dL (2.5-4.9); POTASSIUM 5.6 mmol/L (3.5-5.1)
[2022-07-21] MEDS: INSULIN REGULAR, HUMAN 100 UNIT/ML 3 ML VIAL SQ PRN ×4 (06:49→22:18)
[2022-07-21] MEDS: BLOOD SUGAR DIAGNOSTIC 1 EACH STRIP IN SCH ×4 (06:51→22:20)
--- NOTE | 2022-07-21 07:25 | NUR ---
RESEARCH SUBJECT OPENING NOTE RECEIVED PT AWAKE IN BED. PT IS A/O X 4, ABLE TO MAKE NEEDS KNOWN. ON ROOM AIR, TOLERATING WELL. NO SOB NOTED. NOT IN ANY SIGN OF RESPIRATORY DISTRESS. PT IS ON CARDIAC TELE MONITOR WITH CURRENT READING OF SINUS RHYTHM WITH BBB DURING TELEPHONE OPERATOR RECEPTIONIST, HR IN 80s. NO C/O CARDIAC DISTRESS VOICED AT THIS TIME. IV ACCESS ON LAC GAUGE #20, INTACT AND PATENT. RIGHT UPPER CHEST WALL PERMACATH INTACT. SAFETY MEASURES IN PLACE: BED IN LOWEST AND LOCKED POSITION, SIDE RAILS UPX2, AND CALL LIGHT WITHIN REACH. PT C/O HEADACHE. bp wnl AND SCHEDULED FOR HEMODIALYSIS TODAY. WILL HOLD NIFEDIPINE AND NITROPASTE AND GIVE TYLENOL FOR HEADACHE. WILL CONTINUE TO MONITOR PT.
[2022-07-21] MEDS: NEPRO VAN 237 ML CAN PO SCH ×2 (07:56→17:22)
[2022-07-21] MEDS: ASPIRIN 81 MG TAB.CHEW PO SCH ×2 (07:56→22:17)
[2022-07-21] MEDS: GABAPENTIN 100 MG CAPSULE PO SCH ×3 (07:57→17:20)
[2022-07-21 08:00] VITALS: BP 127/63
[2022-07-21] MEDS: NIFEdipine XL (30MG) 30 MG TAB PO SCH ×2 (08:03→08:45)
[2022-07-21] MEDS: DOCUSATE SODIUM 100 MG CAPSULE PO SCH ×2 (08:04→17:20)
[2022-07-21] MEDS: TAMSULOSIN 0.4 MG CAP.SR.24H PO SCH (08:16)
[2022-07-21] MEDS: HEPARIN SODIUM, PORCINE 5000 UNITS/1 ML VIAL SQ SCH ×2 (08:26→21:00)
[2022-07-21] MEDS: NITROGLYCERIN 30 GM TUBE TP SCH ×2 (08:44→21:16)
--- NOTE | 2022-07-21 09:00 | NUR ---
WITHHELD MEDICATION FOR HEMODIALYSIS DID NOT GIVE NIFEDIPINE NOR NITROPASTE DUE TO HEMODIALYSIS, NO CP, C/O HEADACHE, AND NORMAL BP.
[2022-07-21 16:00] VITALS: BP 138/67
--- NOTE | 2022-07-21 18:38 | NUR ---
ADULT PAROLE OFFICER CLOSING NOTE PT ASLEEP IN BED, EASILY AROUSED. PT IS A/OX4, ABLE TO MAKE NEEDS KNOWN. ON ROOM AIR, TOLERATING WELL. NO SOB NOTED. NOT IN ANY SIGN OF RESPIRATORY DISTRESS. PT IS ON CARDIAC TELE MONITOR WITH CURRENT READING OF SINUS RHYTHM , HR IN 80s. NO C/O CARDIAC DISTRESS VOICED AT THIS TIME. IV ACCESS ON LAC G#20, INTACT AND PATENT. RIGHT UPPER CHEST WALL PERMACATH INTACT. ALL NEEDS ATTENDED. KEPT CLEAN AND COMFORTABLE AT ALL TIMES.SAFETY MEASURES IN PLACE: BED IN LOWEST AND LOCKED POSITION, SIDE RAILS UPX2, AND CALL LIGHT WITHIN REACH. ENDORSED TO MS SQL DEVELOPER NURSE FOR JAVIER.
--- NOTE | 2022-07-21 19:25 | NUR ---
diana rn opening note received patient in bed, a/ox4. no s/s of apparent distress in room air. c/o mild headache-- will medicate. Patient L. hand IV access Intact, patent. Call light within reach. safety in place. will continue with the plan for patient.
[2022-07-21 20:00] VITALS: BP 126/66
--- NOTE | 2022-07-21 20:04 | NUR ---
noc rn note patient c/o headache. Given Tylenol as ordered PRN.
[2022-07-21] MEDS: ATORVASTATIN 10 MG TABLET PO SCH (21:16)
--- NOTE | 2022-07-21 21:59 | NUR ---
noc rn note- non-admin scheduled 2100 dose of Heparin non-administered. Hold Heparin per Doctor's notes. Stool for Occult Blood collected and sent to lab at this time.
--- NOTE | 2022-07-21 22:00 | NUR ---
diana rn note Patient very forgetful, trying to get out of bed every 5 minutes. Even peed on the floor. Offered to sit out with RN at the nursing station for companionship. Will monitor patient. Addendum: 07/21/22 at 9774 by ALCIRA ZHANG RN DISREGARD wrong patient.
[2022-07-21 22:16] LABS: OCCULT BLOOD STOOL NEGATIVE (NEGATIVE)
--- NOTE | 2022-07-21 23:42 | NUR ---
noc rn note patient c/o 12/26 headache. Given [place] 10 as ordered PRN. will re-assess
[2022-07-22] VITALS: BP 122/65
[2022-07-22] MEDS: ACETAMINOPHEN 325 MG TABLET PO PRN (02:04)
[2022-07-22 04:00] VITALS: BP 141/73
[2022-07-22] MEDS: hydrALAZINE HCL 50 MG TABLET PO SCH ×2 (05:10→12:49)
[2022-07-22 05:53] LABS: BASOPHILS % (AUTO) 0.8 % (0.0-2.0); EOSINOPHILS % (AUTO) 7.3 % (0.0-6.0); HEMATOCRIT 22 % (39-51); HEMOGLOBIN 7.4 g/dL (13.5-17.5); LYMPHOCYTES % (AUTO) 19.3 % (20.0-44.0); MEAN CORPUSCULAR HGB CONC 33 g/dl (31.0-36.0); MEAN CORPUSCULAR VOLUME 89 fL (80-96); MONOCYTES # (AUTO) 0.7 K/uL (0.1-1.30); MONOCYTES % (AUTO) 13.9 % (2.0-12.0); NEUTROPHILS % (AUTO) 58.7 % (43.0-81.0); PLATELET COUNT (AUTO) 129 K/uL (150-450); WHITE BLOOD COUNT (AUTO) 5.1 K/uL (4.3-11.0)
[2022-07-22 06:19] LABS: CALCIUM, SERUM 8.6 mg/dL (8.5-10.1); CREATININE 5.4 mg/dL (0.6-1.3); MAGNESIUM 2.2 mg/dL (1.8-2.4); PHOSPHORUS 3.5 mg/dL (2.5-4.9)
[2022-07-22] MEDS: BLOOD SUGAR DIAGNOSTIC 1 EACH STRIP IN SCH ×2 (06:38→11:38)
[2022-07-22] MEDS: INSULIN REGULAR, HUMAN 100 UNIT/ML 3 ML VIAL SQ PRN ×2 (06:42→11:43)
--- NOTE | 2022-07-22 07:13 | NUR ---
noc rn closing note patient in sitting on the bed, a/ox4. no s/s of apparent distress on 2lpm of o2 via nc. denies pain at this time. all needs attended. all scheduled medications administered. call light within reach. reading sr with BBB consistent throughout shift. endorsed to Dmitri, morning RN for continuity of patient care.
[2022-07-22] MEDS: NEPRO VAN 237 ML CAN PO SCH (07:40)
--- NOTE | 2022-07-22 07:42 | NUR ---
MATCH MAKER OPENING NOTE RECEIVED PT AWAKE IN BED, EATING BREAKFAST. PT IS A/O X 4, ABLE TO MAKE NEEDS KNOWN. ON ROOM AIR, TOLERATING WELL. NO SOB NOTED. NOT IN ANY SIGN OF RESPIRATORY DISTRESS. PT IS ON CARDIAC TELE MONITOR WITH CURRENT READING OF SINUS RHYTHM, HR IN 90s. NO C/O CARDIAC DISTRESS VOICED AT THIS TIME. IV ACCESS ON LEFT HAND, GAUGE #20, INTACT AND PATENT. RIGHT UPPER CHEST WALL PERMACATH INTACT. SAFETY MEASURES IN PLACE: BED IN LOWEST AND LOCKED POSITION, SIDE RAILS UPX2, AND CALL LIGHT WITHIN REACH. PT DENIES PAIN. WILL CONTINUE TO MONITOR PT.
[2022-07-22] MEDS: TAMSULOSIN 0.4 MG CAP.SR.24H PO SCH (08:24)
[2022-07-22] MEDS: DOCUSATE SODIUM 100 MG CAPSULE PO SCH (08:24)
[2022-07-22] MEDS: GABAPENTIN 100 MG CAPSULE PO SCH ×2 (08:25→12:49)
[2022-07-22] MEDS: NIFEdipine XL (30MG) 30 MG TAB PO SCH (08:25)
[2022-07-22 08:37] VITALS: BP 124/60
[2022-07-22] MEDS: NITROGLYCERIN 30 GM TUBE TP SCH (08:37)
[2022-07-22] MEDS: HEPARIN SODIUM, PORCINE 5000 UNITS/1 ML VIAL SQ SCH (08:38)
[2022-07-22] MEDS ORDERED: HYDR-4077 PO (11:20)
[2022-07-22] MEDS ORDERED: DOCU100C36 PO (11:20)
[2022-07-22 11:50] VITALS: BP 143/77
[2022-07-22 12:49] VITALS: BP 143/77
--- NOTE | 2022-07-22 16:03 | NUR ---
SUPERINTENDENT COLLIERYFEDERAL AGENT OF PATIENT NOTE Patient tolerated well the removal of the PIV catheter, fully intact without complications. Telemetry box and leads were removed from patient's torso/chest. Patient reviewed home care discharge instructions with RN using the teach back method in his own words. Patient picked up by brotherLaci, and discharge home care instructions reviewed with brother as well. Patient departed via wheelchair to private car with front wheel walker and all belongings at 14:23 hours, bound for home.
== END 2022-07-22 14:25 | disposition home health service (06) | DRG 190 ==
LOC: ER 15:41 → TELE 19:11
PROVIDERS: ADMIT Nurse Practitioner Acute Care; ATTEND Student in an Organized Health Care Education/Training Program
PROC: 5A1D70Z Performance of Urinary Filtration, Intermittent, Less than 6 Hours Per Day (ICD-10-PCS; principal; 2022-07-18)
PROC: 30233N1 Transfusion of Nonautologous Red Blood Cells into Peripheral Vein, Percutaneous Approach (ICD-10-PCS; 2022-07-19)
DX: I21.4 Non-ST elevation (NSTEMI) myocardial infarction (principal); I13.2 Hypertensive heart and chronic kidney disease with heart failure and with stage 5 chronic kidney disease, or end stage renal disease; E44.0 Moderate protein-calorie malnutrition; E83.39 Other disorders of phosphorus metabolism; D63.1 Anemia in chronic kidney disease; E88.09 Other disorders of plasma-protein metabolism, not elsewhere classified; N18.6 End stage renal disease; E11.22 Type 2 diabetes mellitus with diabetic chronic kidney disease; M94.0 Chondrocostal junction syndrome [Tietze]; L97.529 Non-pressure chronic ulcer of other part of left foot with unspecified severity; E11.621 Type 2 diabetes mellitus with foot ulcer; I16.0 Hypertensive urgency; Z20.822 Contact with and (suspected) exposure to COVID-19; E11.42 Type 2 diabetes mellitus with diabetic polyneuropathy; I50.9 Heart failure, unspecified; Z99.2 Dependence on renal dialysis; M89.8X9 Other specified disorders of bone, unspecified site; Z79.82 Long term (current) use of aspirin; Z79.899 Other long term (current) drug therapy; K59.00 Constipation, unspecified
CPT/HCPCS: 36415; 70450-TC; 71045-TC; 80048-TC; 80061-TC; 80076-TC; 82272-TC; 82803-TC; 82962-TC; 83690-TC; 83735-TC; 84100-TC; 84484-TC; 85025-TC; 86706; 86850-TC; 87081-TC; 87340; 90935-TC; 93307-TC; 97112-TC; 97116-TC; 97530-TC; C9803; G0378; J1644; J1815; J2270; J2405; J3490; J7030; J7050; P9016

== ENCOUNTER 2023-01-31 15:24 | Emergency (ER) | payer MEDICAID ==
[~2023-01-31] VITALS: Ht 165.1 cm; Wt 74.4 kg
[~2023-01-31 15:24] MED LIST: ASPI-1169 PO; ATOR80TA PO; DOCU100C36 PO; GABA-532 PO; HYDR-4077 PO; NIFE20CA PO; TAMS-12 PO
[2023-01-31] MEDS ORDERED: ACETAMINOPHEN ES 500 MG TABLET ONE (15:48)
[2023-01-31] MEDS ORDERED: METOCLOPRAMIDE HCL 10 MG TABLET PO ONE (16:00)
[2023-01-31] MEDS ORDERED: ACETAMINOPHEN ES 500 MG TABLET PO ONE (16:00)
[2023-01-31] MEDS ORDERED: diphenhydrAMINE HCL 25 MG CAPSULE PO ONE (16:00)
[2023-01-31] MEDS ORDERED: diphenhydrAMINE HCL 25 MG CAPSULE ONE (16:06)
[2023-01-31] MEDS ORDERED: METOCLOPRAMIDE HCL 10 MG TABLET ONE (16:07)
[2023-01-31 18:17] VITALS: BP 133/60; TEMP 98.5; O2SAT 99
== END 2023-01-31 18:17 | disposition home or self-care (01) ==
LOC: ER 15:35
DX: R51.9 Headache, unspecified (principal); E11.22 Type 2 diabetes mellitus with diabetic chronic kidney disease; I12.0 Hypertensive chronic kidney disease with stage 5 chronic kidney disease or end stage renal disease; N18.6 End stage renal disease; Z79.899 Other long term (current) drug therapy
CPT/HCPCS: 99284; 70450; Q0163; J8597